=== PATIENT | male | born 1990 | race Caucasian/White ===

== ENCOUNTER 2016-07-25 20:01 | Emergency (ER) | payer SELFPAY ==
[~2016-07-25] VITALS: Ht 170.2 cm; Wt 70.3 kg
[2016-07-25 20:03] VITALS: BP 101/68
--- NOTE | 2016-07-25 20:05 | NUR ---
PATIENT LEFT WITHOUT BEING SEEN BY DR. REDD. NO FURTHER CARE PROVIDED FOR PATIENT.
== END 2016-07-25 20:05 | disposition left against medical advice (07) ==
LOC: MED 20:01
DX: R42 Dizziness and giddiness (principal); Z53.21 Procedure and treatment not carried out due to patient leaving prior to being seen by health care provider